=== PATIENT | male | born 1980 | race Caucasian/White ===

== ENCOUNTER → 2020-01-05 | Outpatient (CLI) | payer OTHER | END | disposition home or self-care (01) | LOC: LABWHC1 10:56 | PROVIDERS: ATTEND Family Medicine | DX: Z03.818 Encounter for observation for suspected exposure to other biological agents ruled out (principal) | CPT/HCPCS: U0003; C9803 ==

== ENCOUNTER → 2020-04-20 | Outpatient (CLI) | payer OTHER ==
[2020-04-20 19:28] LABS: Basophils # (A) 0.04 X 10*3/uL (0.00-0.10); Basophils % (A) 0.7 %; Eosinophils % (A) 1.8 %; HCT 45.6 % (39.6-50.0); HGB 15.5 g/dL (13.0-17.0); Lymphocytes # (A) 1.58 X 10*3/uL (0.90-5.00); Lymphocytes % (A) 28.2 %; MCH 30.6 pg (27.0-32.0); MCV 90.1 fL (80.0-97.0); Mean Platelet Volume 10.7 fL (9.5-12.2); Monocytes # (A) 0.39 X 10*3/uL (0.20-1.00); Neutrophils # (A) 3.48 X 10*3/uL (1.80-7.70); Neutrophils % (A) 61.9 %; Platelet Count 321 X 10*3/uL (140-440); RBC 5.06 X 10*6/uL (4.40-5.60); RDW 12.5 % (11.5-14.5); WBC 5.61 X 10*3/uL (4.50-10.00)
[2020-04-20 20:28] LABS: African American GFR (CKD) 110.2 (60.0-200.0); Albumin/Globulin Ratio 2.78 (1.60-3.17); Anion Gap 7.1 mmol/L (4.00-12.00); Bilirubin, Conjugated 0.2 mg/dL (0.20-0.40); Calcium 9.7 mg/dL (8.7-10.3); Carbon Dioxide 25.9 mmol/L (21.6-31.8); Globulin 1.8 g/dL (1.6-3.3); Non-African American GFR(CKD) 95.1 (60.0-200.0); Potassium 4.3 mmol/L (3.5-5.5); Total Bilirubin 0.7 mg/dL (0.3-1.2); Total Protein 6.8 g/dL (6.2-8.2)
[2020-04-21 20:02] LABS: Hepatitis A Antibody IgM Non-Reactive (Non-Reactive); Hepatitis B Core IgM Non-Reactive (Non-Reactive); Hepatitis B Surface Antigen Non-Reactive (Non-Reactive); Hepatitis C IgG Antibody Non-Reactive (Non-Reactive)
== END | disposition home or self-care (01) ==
LOC: LABWHC1 11:22
PROVIDERS: ATTEND Specialist
DX: B35.1 Tinea unguium (principal)
CPT/HCPCS: 36415; 80053; 80074; 85025; 86038; 86769

== ENCOUNTER → 2021-10-30 | Outpatient (CLI) | payer OTHER ==
--- NOTE | 2021-10-31 03:27 | CONS ---
CONSULTATION HISTORY OF PRESENT ILLNESS: A 41-year-old gentleman, who [facility] evaluation and treatment of obstructive sleep apnea-hypopnea syndrome, history of present illness, sleep-awake evaluation. The patient has been diagnosed with obstructive sleep apnea in 2010. At that time, apnea-hypopnea index was around 12. He had the CPAP titration, but during titration developed central apneas and ended titration without a Servo ventilator. After that, the patient was started on treatment with oral appliances and he continued to use oral appliances until now. SLEEP SCHEDULE: Apparently, his sleep schedule on weekdays from 11 p.m. to 5:36 a.m. and on weekends from midnight until 6 to 7 a.m. No problems with falling asleep. No TV in bedroom. He usually sleeps on the side position. He wakes up from sleep up to 2-3 times without dental appliances and has nocturia up to 2 times without using dental appliances. He has loud snoring, but again it is usually present if he is not using oral appliances. In the morning, the patient wakes up tired, has difficulties to pay attention, has problems with concentration and irritability. [place] Sleepiness Scale is 8 and this is again without dental appliances. While using oral appliances, he may have some discomfort related to TMJ. Otherwise, no significant problems. Usually, he does not take any naps. PAST MEDICAL HISTORY: Positive for hypertension, ADD, headaches, anxiety. PAST SURGICAL HISTORY: Lipoma has been removed from the back of his neck, vasectomy, wisdom tooth removed. MEDICATIONS: 1. Amlodipine. 2. Adderall XR 25 mg once a day. 3. Zyrtec 10 mg once a day. 4. Zoloft 50 mg once a day. 5. Flonase 50 mcg spray. 6. Ibuprofen. SOCIAL HISTORY: Positive for smoking for about 10 pack years. Quit smoking. Alcohol consumption occasional. FAMILY HISTORY: Heart problems, asthma, thyroid problems, acid reflux. REVIEW OF SYSTEMS: Snoring, awakenings from sleep, usually corrected with oral appliances. PHYSICAL EXAMINATION: GENERAL: gentleman without distress. VITAL SIGNS: BP 140/99, HR 106, RR 16, height 5 feet 9 inches, weight 191.8 pounds, body mass index 28.2, temperature 97.4, oxygen saturation at room air 97%. NECK: 17 inches in circumference. HEENT: Small oropharyngeal air space, low position of soft palate, Mallampati 3-4. NECK: Supple, no JVD. Thyroid is not palpable. LUNGS: Clear to percussion and to auscultation. Good air exchange. No wheezing or rhonchi. HEART: S1, S2 regular. No murmurs, gallops, or rubs. ABDOMEN: Soft and nontender. Bowel sounds are present. No organomegaly appreciated. EXTREMITIES: No clubbing or cyanosis. HEEL COVERER: Awake, alert, and oriented X3. Cranial nerves 2 to 7 intact. There is no fasciculation or atrophy. noted. No focal deficits observed. IMPRESSION: 1. History of obstructive sleep apnea-hypopnea syndrome documented by another institution in [place] in 2010. Since that time, the patient is on treatment with oral appliances. Small oropharyngeal air space, low position of soft palate, Mallampati 3-4, wide neck, 17 inches in circumference; obstructive sleep apnea-hypopnea syndrome. 2. Hypertension. 3. History of attention deficit disorder. 4. History of anxiety. 5. Headaches. 6. Status post lipoma removed from the back of his neck. 7. Status post vasectomy. 8. Status post wisdom tooth removed. PLAN: 1. Polysomnogram with oral appliances to check the patient breathing during sleep. 2. Following plan after reviewing results of sleep study. 3. If sleep study will not show significant respiratory abnormalities on oral appliances, the patient will continue to use oral appliances. If sleep study will show abnormalities of respiration, treatment with CPAP should be considered. 4. Sleep hygiene with time in bed for at least 7-1/2 to 8 hours. 5. No driving if feeling sleepiness. Thank you very much for referring this patient for consultation. MMODL / IJN: [id number] / SHARDA
== END | disposition home or self-care (01) ==
LOC: SLEEP 16:38
PROVIDERS: ATTEND Internal Medicine
DX: G47.33 Obstructive sleep apnea (adult) (pediatric) (principal); I10 Essential (primary) hypertension; R51.9 Headache, unspecified; Z98.890 Other specified postprocedural states; Z86.59 Personal history of other mental and behavioral disorders; Z90.89 Acquired absence of other organs
CPT/HCPCS: 99211

== ENCOUNTER → 2023-12-02 | Outpatient (CLI) | payer OTHER ==
--- NOTE | 2023-12-02 17:49 | CT ---
EXAMINATION TYPE: CT urogram wo/w con CT DLP: 2913 mGycm, Automated exposure control for dose reduction was used. DATE OF EXAM: 12/02/2023 11:49 AM COMPARISON: None CLINICAL INDICATION:Male, 43 years old with history of N50.82 SCROTAL PAIN; PHH, Scrotal pain and john ss hematuria TECHNIQUE: Urogram of the abdomen and pelvis was performed before and after the administration of 100 cc of IV c ontrast Isovue 300 contrast. Delayed imaging was performed. Coronal and sagittal reformats were perfo rmed. One or more CT dose reduction strategies were utilized during this examination. FINDINGS: GENITOURINARY: RIGHT KIDNEY AND URETER: Nonobstructive right upper pole 4 mm calculus. No hydronephrosis or hydroure ter. No renal mass or other lesions. No urothelial lesions: no filling defect, dilation, stricture or wall thickening. LEFT KIDNEY AND URETER: Minimal hydronephrosis with a 6 mm calculus of ureter pelvic junction. Contra st is seen extending past this to the remaining ureter on delayed imaging. No hydroureter. No renal m ass or other lesions. No urothelial lesions: no filling defect, dilation, stricture or wall thickenin g. URINARY BLADDER: Moderately well distended. Normal, no calculi, mass or other lesions. REPRODUCTIVE: Couple of bilateral scrotal tunica albuginea calcifications. No sizable hydrocele. ABDOMEN LIVER: Unremarkable. GALLBLADDER AND BILE DUCTS: Unremarkable PANCREAS: Unremarkable. SPLEEN: Unremarkable. ADRENAL GLANDS: Unremarkable. STOMACH AND BOWEL: No focal bowel wall thickening or surrounding inflammatory changes. The appendix i s within normal limits.. No evidence of bowel obstruction. PERITONEUM: No evidence of pneumoperitoneum, free fluid, or adenopathy. Subcentimeter paraesophageal lymph node identified in the GE junction. VASCULATURE: No aortic aneurysm. MUSCULOSKELETAL: No acute osseous abnormalities. Degenerative disc disease at L5-S1. SOFT TISSUE/ABDOMINAL WALL: Unremarkable. LOWER CHEST: No significant findings. IMPRESSION: 1. No evidence of renal/urothelial neoplasm. 2. Minimal left hydronephrosis with a 6 mm calculus at the ureteropelvic junction. Contrast passes th is and opacifies the remaining left ureter on delayed imaging. 3. Nonobstructive right 4 mm renal calculus. [facility], , 12/02/2023 5:46 PM
== END | disposition home or self-care (01) ==
LOC: RADCTMAIN 09:53
PROVIDERS: ATTEND Family Medicine
DX: N50.82 Scrotal pain
CPT/HCPCS: 74178; 74400

== ENCOUNTER → 2023-12-10 | Outpatient (CLI) | payer OTHER ==
--- NOTE | 2023-12-11 08:05 | XR ---
EXAMINATION TYPE: XR KUB DATE OF EXAM: 12/10/2023 COMPARISON: NONE HISTORY: Pain TECHNIQUE: Single supine KUB image of the abdomen is obtained FINDINGS: Small bowel demonstrates no evidence for dilatation or air fluid levels. Gas and fecal material is seen in non-distended colon. No convincing evidence for pneumoperitoneum. No unusual calcifications. The lung bases are clear. The osseous structures are intact. IMPRESSION: 1. Overall nonobstructive bowel gas pattern. [facility], , 12/11/2023 8:03 AM
== END | disposition home or self-care (01) ==
LOC: RADXRMAIN 16:12
PROVIDERS: ATTEND Urology
DX: N20.0 Calculus of kidney (principal)
CPT/HCPCS: 74018

== ENCOUNTER 2023-12-29 02:11 | Emergency (ER) | payer OTHER ==
[2023-12-29 02:18] VITALS: RESP 16
[2023-12-29] MEDS: lisinopriL 10 MG TAB PO STA (03:27)
[2023-12-29 03:42] LABS: Appearance,Urine Cloudy (Clear); Bilirubin,Urine Negative (Negative); Blood,Urine Large (Negative); Color,Urine Yellow; Glucose,Urine (UA) Negative (Negative); Ketones,Urine Negative (Negative); Leukocyte Esterase,Urine Negative (Negative); Mucus,Urine Few /hpf; Nitrite,Urine Negative (Negative); Protein,Urine 1+ (Negative); RBC,Urine >182 /hpf (0-5); Specific Gravity,Urine 1.022 (1.001-1.035); Squamous Epithelial Cell,Urine <1 /hpf (0-4); Urobilinogen,Urine <2.0 mg/dL (<2.0); WBC,Urine 4 /hpf (0-5)
[2023-12-29] MEDS: TAMSULOSIN 0.4 MG CAP.ER.24H PO STA (03:42)
--- NOTE | 2023-12-29 03:56 | ED ---
General Adult HPI - General Chief complaint: Urogenital Stated complaint: Kidney stones Time Seen by Provider: 12/29/23 02:35 Source: patient Mode of arrival: ambulatory Limitations: no limitations - History of Present Illness Initial comments: This patient is a 43-year-old man who arrives here as a transfer from [facility] to have additional evaluation and treatment for right flank pain. The patient states that the pain had developed over the course of the night. He went to [facility] and was diagnosed with kidney stone after hav ing CT scan there. The patient states that he did have some relief from the symptoms with the medications that they gave. In addition to the pain patient describes urge to urinate but not being able to pass much urine. Denies fever or chills -: hour(s) Location: right (Flank) Radiation: other (Right lower quadrant) Quality: sharp Consistency: other (Has improved with medication) Improves with: medication Worsens with: none Associated Symptoms: other (Frequency and urgency) Treatments Prior to Arrival: none - Related Data Previous Rx's Medication Instructions Recorded HYDROcodone/APAP 5-325MG [[place] 1 tab PO Q4HR PRN 3 Days #18 tab 12/29/23 5-325] Ondansetron Odt [Zofran ODT] 4 mg PO Q8HR PRN #10 tab 12/29/23 Tamsulosin [Flomax] 0.4 mg PO DAILY #14 cap 12/29/23 Allergies Allergy/AdvReac Type Severity Reaction Status Date / Time No Known Allergies Allergy Verified 12/29/23 02:18 Review of Systems ROS Statement: Those systems with pertinent positive or pertinent negative responses have been documented in the HPI. ROS Other: All systems not noted in ROS Statement are negative. Constitutional: Denies: fever, chills, weakness Cardiovascular: Denies: chest pain, palpitations Gastrointestinal: Reports: as per HPI, abdominal pain (. Second). Denies: vomiting, diarrhea, constipation, melena, hematochezia Genitourinary: Reports: urgency, frequency. Denies: testicular pain (Patient is) Musculoskeletal: Denies: back pain Skin: Denies: rash Neurological: Denies: headache, weakness Past Medical History Past Medical History: Hypertension History of Any Multi-Drug Resistant Organisms: None Reported Additional Past Surgical History / Comment(s): Vasectomy 2018, lipoma removed from back of neck Past Psychological History: ADD/ADHD, Anxiety Smoking Status: Never smoker Past Alcohol Use History: Occasional Past Drug Use History: None Reported General Exam Limitations: no limitations General appearance: alert, in no apparent distress Head exam: Present: atraumatic, normocephalic Eye exam: Present: normal appearance. Absent: scleral icterus, conjunctival injection ENT exam: Present: normal oropharynx Neck exam: Present: normal inspection Respiratory exam: Present: normal lung sounds bilaterally. Absent: respiratory distress, wheezes, rales, rhonchi, stridor, accessory muscle use Cardiovascular Exam: Present: regular rate, normal rhythm, normal heart sounds. Absent: systolic murmur, diastolic murmur, rubs, gallop GI/Abdominal exam: Present: soft. Absent: distended, tenderness, guarding, rebound, rigid, mass Extremities exam: Present: normal inspection, normal capillary refill. Absent: pedal edema, calf tenderness Back exam: Present: normal inspection, CVA tenderness (R). Absent: CVA tenderness (L) Neurological exam: Present: alert Skin exam: Present: warm, dry, intact, normal color. Absent: rash Course Vital Signs 12/29/23 12/29/23 12/29/23 02:12 05:21 06:15 Temperature 97.9 F 97.6 F 97.8 F Pulse Rate 84 85 86 Respiratory 16 16 16 Rate Blood Pressure 153/104 118/76 118/76 O2 Sat by Pulse 98 99 Oximetry Medical Decision Making - Medical Decision Making Was pt. sent in by a medical professional or institution (, PA, FOREIGN LEGAL CONSULTANT, urgent care, hospital, or skilled nursing...) When possible be specific @ -[No] Did you speak to anyone other than the patient for history (EMS, parent, family, police, friend...)? What history was obtained from this source @ -[No] Did you review nursing and triage notes (agree or disagree)? Why? @ -[I reviewed and agree with nursing and triage notes] Were old charts reviewed (outside hosp., previous admission, EMS record, old EKG, old radiological studies, urgent care reports/EKG's, skilled nursing records)? Report findings @ -[Transfer charts were reviewed] Differential Diagnosis (chest pain, altered mental status, abdominal pain women, abdominal pain men, vaginal bleeding, weakness, fever, dyspnea, syncope, headache, dizziness, GI bleed, back pain, seizure, CVA, palpatations, mental health, musculoskeletal)? @ -[Differential Abdominal Pain Men: Appendicitis, cholecystitis, diverticulosis, ischemic bowel, pancreatitis, hepatitis, UTI, gastroenteritis, AAA, incarcerated hernia, bowel obstruction, constipation, inflammatory bowel, hepatitis, peptic ulcer disease, splenic infarction, perforated viscus, testicular torsion, this is not meant to be an all-inclusive list EKG interpreted by me (3pts min.). @ -[As above] X-rays interpreted by me (1pt min.). @ -[None done] CT interpreted by me (1pt min.). @ -[None done] U/S interpreted by me (1pt. min.). @ -[None done] What testing was considered but not performed or refused? (CT, X-rays, U/S, labs)? Why? @ -[None] What meds were considered but not given or refused? Why? @ -[None] Did you discuss the management of the patient with other professionals (professionals i.e. , PA, FOREIGN LEGAL CONSULTANT, lab, RT, psych nurse, social secretary, oil boiler, teacher, accounts officer, case assembler)? Give summary @ -[No] Was smoking cessation discussed for >3mins.? @ -[No] Was critical care preformed (if so, how long)? @ -[No] Were there social determinants of health that impacted care today? How? (Homelessness, low income, unemployed, alcoholism, drug addiction, transportation, low edu. Level, literacy, decrease access to med. care, skilled nursing, rehab)? @ -[No] Was there de-escalation of care discussed even if they declined (Discuss DNR or withdrawal of care, Hospice)? DNR status @ -[No] What co-morbidities impacted this encounter? (DM, HTN, Smoking, COPD, CAD, Cancer, CVA, ARF, Chemo, Hep., AIDS, mental health diagnosis, sleep apnea, morbid obesity)? @ -[None] Was patient admitted / discharged? Hospital course, mention meds given and route, prescriptions, significant lab abnormalities, going to OR and other pertinent info. @ -[hospital course this patient is 43-year-old man with flank and lower quadrant pain who is transferred here for further treatment after found to have kidney stone. The patient here is now feeling well and after discussion with patient he feels he is able to follow-up as outpatient. The patient is prescribed additional medication. We discussed the appropriate further care and follow-up as well as return parameters Undiagnosed new problem with uncertain prognosis? @ -[No] Drug Therapy requiring intensive monitoring for toxicity (Heparin, Nitro, Insulin, Cardizem)? @ -[No] Were any procedures done? @ -[No] Diagnosis/symptom? @ -[Acute kidney stone Acute, or Chronic, or Acute on Chronic? @ -[Acute Uncomplicated (without systemic symptoms) or Complicated (systemic symptoms)? @ -[Uncomplicated Side effects of treatment? @ -[No] Exacerbation, Progression, or Severe Exacerbation? @ -[No] Poses a threat to life or bodily function? How? (Chest pain, [place], MA, pneumonia, PE, COPD, DKA, ARF, appy, cholecystitis, CVA, Diverticulitis, Homicidal, Suicidal, threat to staff... and all critical care pts) @ -[No] - Lab Data Lab Results 12/29/23 Range/Units 03:20 Urine Color Yellow Urine Appearance Cloudy (Clear) Urine pH 6.0 (5.0-8.0) Ur Specific [place] 1.022 (1.001-1.035) Urine Protein 1+ H (Negative) Urine Glucose (UA) Negative (Negative) Urine Ketones Negative (Negative) Urine Blood Large H (Negative) Urine Nitrite Negative (Negative) Urine Bilirubin Negative (Negative) Urine Urobilinogen <2.0 (<2.0) mg/dL Ur Leukocyte Esterase Negative (Negative) Urine RBC >182 H (0-5) /hpf Urine WBC 4 (0-5) /hpf Ur Squamous Epith Cells <1 (0-4) /hpf Urine Mucus Few H (None) /hpf Disposition Clinical Impression: Kidney stone Disposition: HOME SELF-CARE Condition: Good Instructions (If sedation given, give patient instructions): Kidney Stones (ED) Prescriptions: Tamsulosin [Flomax] 0.4 mg PO DAILY #14 cap HYDROcodone/APAP 5-325MG [[place] 5-325] 1 tab PO Q4HR PRN 3 Days #18 tab PRN Reason: Pain Ondansetron Odt [Zofran ODT] 4 mg PO Q8HR PRN #10 tab PRN Reason: Nausea Is patient prescribed a controlled substance at d/c from ED?: Yes When asked, does pt state using other controlled substances?: No If prescribed controlled substance>3 days was MAPS reviewed?: Prescribed <3 Days If opioid is for acute pain is fill amount 7 days or less?: Yes If Rx opioid, was Start Talking consent form obtained?: Yes Referrals: Sandi Harper MD [Primary Care Provider] - 1-2 days
[2023-12-29 05:22] VITALS: BP 118/76
[2023-12-29] MEDS: HYDROcodone/APAP 5-325MG 1 EACH TAB PO STA (05:28)
[2023-12-29 06:17] VITALS: PULSE 86; TEMP 97.8
== END 2023-12-29 06:47 | disposition home or self-care (01) ==
LOC: EC 02:11
DX: N20.0 Calculus of kidney (principal)
CPT/HCPCS: 81001; 99284

== ENCOUNTER → 2024-01-15 | Outpatient (CLI) | payer OTHER ==
--- NOTE | 2024-01-15 11:50 | XR ---
EXAMINATION TYPE: XR KUB DATE OF EXAM: 01/15/2024 10:44 AM COMPARISON: 12/10/2023 CLINICAL INDICATION: Male, 43 years old with history of N20.1 URETERAL CALCULUS, TECHNIQUE: XR KUB view(s) obtained. FINDINGS: There is a normal bowel gas pattern. Psoas margins are normal. No organomegaly is present. No suspicious renal or ureteral stones identified. Probable phleboliths within the pelvis present pre viously IMPRESSION: 1. Unremarkable Abdomen [facility], , 01/15/2024 11:48 AM
== END | disposition home or self-care (01) ==
LOC: RADXRMAIN 10:34
PROVIDERS: ATTEND Urology
DX: N20.1 Calculus of ureter (principal); Z87.442 Personal history of urinary calculi
CPT/HCPCS: 74018